=== PATIENT | female | born 1970 | race Caucasian/White ===

== ENCOUNTER → 2020-07-08 09:09 | Outpatient (CLI) | payer SELFPAY ==
--- NOTE | 2020-07-08 09:15 | US_ITS ---
STUDY: ULTRASOUND OF THE FEMALE PELVIS - COMPLETE REASON FOR EXAM: Female, 49 years old. Pelvic pain LMP: 06/26/2020. TECHNIQUE: Transvaginal TECHNICAL QUALITY: Adequate. COMPARISON: None. FINDINGS: The uterus is anteverted and is tilted to the right side of the pelvis. The uterus measures 10.2 cm x 6 cm x 5.3 cm. Normal uterine cervix. The endometrium measures 8 mm in thickness, and is hyperechoic. There is no demonstrated endometrial mass. There is a 1.3 cm x 1.5 cm x 1.4 cm fibroid in the lower uterine segment. I.U.D. - The patient does not have an I.U.D. The right ovary is visualized. The right ovary measures 2.4 cm x 2.7 cm x 2.6 cm. A dominant follicle is seen within the. There is no visualized right adnexal mass or complex lesion. There is normal arterial and normal venous vascularity. The left ovary is visualized. The left ovary measures 3.3 cm x 1.7 cm x 1.5 cm. There is no left ovarian cyst or ovarian mass. There is no visualized left adnexal mass or complex lesion. There is normal arterial and normal venous vascularity. There is no fluid in the cul-de-sac. US/Transvaginal Non- IMPRESSION: 1.3 cm x 1.5 cm x 1.4 cm fibroid in the lower uterine segment. No dominant follicle is seen in the right ovary. This measures 1.6 cm. Electronically Signed: Krystian Fowler MD at 10:03 EST , Service support ,
== END ==
PROVIDERS: PCP Obstetrics & Gynecology; Referring Provider Specialist; Visit Provider Specialist
DX: R10.2 Pelvic and perineal pain (principal)
CPT/HCPCS: 76830

== ENCOUNTER → 2020-07-29 | Outpatient (CLI) | payer OTHER, SELFPAY ==
--- NOTE | 2020-07-29 | EMB_PTH ---
PATIENT: LILIANA SEBASTIAN LOC: [facility] U#:[id number] AGE/SX: 49/F ROOM: RE07/29/[address]: Dr. Zeus Beard MD : 1970 BED: DIS: 07/29/2020 SPEC #: [id number] RECD: 07/29/20 10:55 STATUS: ROSY REQ #: [id number] STEVE: 07/29/20 00:[address]: Zeus Beard DEPT: SURGICAL PATHOLOGY RECD BY: Dina Garzon ENTERED: 07/29/20 11:13 SP TYPE: ENDOM BX/C OT DR: Dr. Leisa Harmon MD Tissues: Endometrium, NOS Procedures: Surgery Specimen Level IV HEADER OPERATION: Endometrial biopsy PRE-OP DIAGNOSIS: N93.9 TISSUE SUBMITTED: Endometrial biopsy MICROSCOPIC DIAGNOSIS Endometrial biopsy: Secretory endometrium. SJ:srtuhi 07/30/2020 MICROSCOPIC DESCRIPTION Slides are reviewed. GROSS DESCRIPTION Received in fixative is one container labeled with the patient's name and designated endometrial biopsy. The specimen consists of multiple irregular fragments of pink-ambriz soft tissue that in aggregate measure 1.5 x 1 x 0.1 cm. The specimen is totally submitted in one cassette. / AM:sruthi 07/29/20 TC:4 CPT: 64329
== END | disposition home or self-care (01) ==
PROVIDERS: PCP Obstetrics & Gynecology; Visit Provider Obstetrics & Gynecology
DX: N93.9 Abnormal uterine and vaginal bleeding, unspecified (principal)
CPT/HCPCS: 88305

== ENCOUNTER 2020-08-09 10:38 | Day surgery (SDC) | payer SELFPAY ==
[2020-08-04 10:58] LABS: Hematocrit 40.5 % (37-47); Hemoglobin 13.1 g/dL (12.0-15.0); Mean Corp Hgb Conc 32.3 g/dL (32-36); Mean Corpuscular Hgb 29.7 pg (27.0-32.0); Mean Corpuscular Volume 91.8 fL (81-99); Platelet Count 175 K/mm3 (150-450); RBC Distribution Width CV 13.2 % (11.6-14.6); RBC Distribution Width SD 44.8 fl (35.1-43.9); Red Blood Count 4.41 M/mm3 (4.2-5.4); White Blood Count 3.8 K/mm3 (4.4-11.0)
[2020-08-04 11:35] LABS: Creatinine, Serum 0.65 mg/dL (0.55-1.02); EST Glomerular Filtration Rate 103 mL/min (>60); Est Glom Filt Rate - Afr Amer 125 mL/min (>60)
--- NOTE | 2020-08-08 18:50 | PCM.HP.BLA ---
History and Physical Date of Admission: 08/09/20 Surgical History and Physical Oliva Mcrae, a 49 year old female 4 0 3 0 4, presents for RAVH/BSO/ Possible Posterior Repair on August 09, 2020 at 1:00. -- Heavy Menses; Symptomatic Rectocele; Uterine Fibroids -- History since of menses every 2-3 weeks with LMP of 07-18-20 lasting 4 days and heavy with a lot of cramps. Reports she is tired of this and wants a Hysterectomy. Adds that when her cycle comes she is almost in bed the whole day, and doubled over in pain with heavy bleeding. Extremely heavy menses which began . Oliva claims it started every 2-3 weeks and has been present Feb 2020. It occurs intermittantly. It is located in the vagina.; It is located in the lower abdomen. Oliva characterizes the quality cramping.; Oliva characterizes the quality heavy. Severity is moderate and not improving. Additional comments are: U/S shows lower uterine segment fibroid; symptomatic rectocele needing fingers to evacuate stool. MEDICATIONS HISTORY: ALLERGIES: NKA Infections - Chicken pox Illnesses - none Accidents - no injuries of consequence Hospitalizations - None Review of Systems: GENERAL - Denies fever, or chills SKIN - Denies skin changes EYES - Denies visual changes EARS - Denies difficulty hearing NOSE - Denies nasal congestion or bleeding MOUTH - Denies sore throat or difficulty swallowing NECK - Denies pain or swelling RESPIRATORY - Denies shortness of breath or wheezing CARDIOVASCULAR - Denies palpitations or chest pain GASTROINTESTINAL - Denies nausea, vomiting, diarrhea, constipation GENITOURINARY - Denies dysuria, frequency of urination, incontinence of urine MUSCULOSKELETAL - Denies joint or muscle pain NEUROLOGICAL - Denies localized numbness or weakness PSYCHIATRIC - Denies depression or anxiety ENDOCRINE - Denies heat or cold intolerance, weight loss or gain HEMATO-IMMUNOLOGIC - Denies excesive bleeding with cuts SOCIAL HISTORY: Alcohol Use - denies drinking Smoking - denies smoking Diet - moderate, balanced diet Lifestyle - moderate stress lifestyle and Exercise - walking Seat Belt 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 MENSTRUAL HISTORY: LMP Known?- YesAmount/Duration - 4 days, Regularity - Irregular, Frequency - every 2-3 weeks days, LMP - 07/18/20, Age Onset Menarche - 14 PAST PREGNANCIES: Total Pregnancies - 7; Full Term Pregnancies - 4; Premature - 0; Abortions, Induced - 0; Abortions, Spontaneous - 3; Ectopics - 0; Multiple Births - 0; Living Children - 4 SURGICAL HISTORY: 1. NASAL SURG 1990 2. 06/2006 Tubal ; Dr. Hewitt PHYSICAL EXAM BP- 110/78 Sitting, Right arm, regular cuff Weight- 138.53994 lbs Height- 65.5 inch BMI:22.66 CONSTITUTIONAL - NAD, well nourished, and well developed SKIN - No rash, lesions, or ulcers HEENT - Normocephalic, PERRLA, EOMI NECK - No nodes, no nuchal rigidity and thyroid normal size and texture LYMPH NODES - Palpation of lymph nodes in neck and groins within normal limits LUNGS - CTA x2 without wheezes, crackles or rales CARDIAC - Regular rate and rhythm without rubs, murmurs, or gallops ABDOMEN - Without hepatosplenomegaly, distention, masses, rebound, or guarding; normal bowel sounds; no hernias EXTREMITIES - No edema or calf tenderness NEUROLOGICAL - Cranial nerves II-XII grossly intact PSYCHIATRIC - A and O to time, place, person, mood and affect External Genitial Vagina - non-tender without lesions Urethra/Urethral Meatus - non-tender Bladder - non-tender Vagina - vaginal boyce are pink and moist without loss of rugae and no evidence of atropy and rectocele 2 cm outside introitus with bearing down; minimal cystocele Cervix - without cervical motion tenderness and has normal size and features without evident lesions and cervix high in vagina with minimal decensus Uterus - multiparous size 6 cm & wt 75-125 g Adnexa - clear without massess or tenderness ASSESSMENT/PLAN: 1. Premenopausal Menorrhagia, Rectocele and Uterine Leiomyoma Unspec EMBx OK. Adamantly declines treatment other than hysterectomy. Plan RAVH/BSO/Possible Posterior Repair. Discussed RBAs and all questions answered.
[2020-08-09] VITALS (11 sets, daily range): BP systolic 112–141; BP diastolic 67–83; PULSE 67–78; RESP 16–17; TEMP 36.2–37.2; O2SAT 95–100; BMI 22.1
--- NOTE | 2020-08-09 | HYST_PTH ---
PATIENT: LILIANA SEBASTIAN LOC: [facility] [place] U#:[id number] AGE/SX: 49/F ROOM: RE08/09/[address]: Dr. Zeus Beard MD : 1970 BED: DIS: 08/10/2020 SPEC #: [id number] RECD: 08/10/20 08:04 STATUS: ROSY REStef #: [id number] STEVE: 08/09/20 00:[address]: Zeus Beard DEPT: SURGICAL PATHOLOGY RECD BY: Trino Porter ENTERED: 08/10/20 08:04 SP TYPE: HYSTERECT OTHR DR: Dr. Tanner Sexton, DO Tissues: Uterus, NOS Procedures: Surgery Specimen Level V HEADER OPERATION: Lap robotic hysterectomy, BSO, posterior repair PRE-OP DIAGNOSIS: Premenopausal menorrhagia, rectocele and uterine leiomyoma TISSUE SUBMITTED: Uterus, cervix, bilateral fallopian tubes and ovaries, vaginal mucosa MICROSCOPIC DIAGNOSIS Uterus, cervix, bilateral fallopian tubes and vaginal mucosa, hysterectomy and bilateral salpingo-oophorectomy and posterior repair: Cervix - mild chronic cystic cervicitis. Endometrium - secretory endometrium. Myometrium - intramural leiomyomas (largest measuring 2 cm in greatest dimension). Focal adenomyosis. Bilateral fallopian tubes - no pathologic diagnosis. Bilateral ovaries - physiologic follicular and corpus luteal cysts. Vaginal mucosa - pieces of squamous mucosa, no pathologic diagnosis. SJ:sruthi 08/11/2020 MICROSCOPIC DESCRIPTION Slides are reviewed. GROSS DESCRIPTION Received in fixative is one container labeled with the patient's name and designated uterus, cervix, bilateral fallopian tubes and ovaries and vaginal mucosa. The specimen consists of a hysterectomy specimen consisting of a uterus with cervix, attached bilateral fallopian tubes and ovary and detached pieces of mucosal tissue. The uterus with cervix weighs 77 gm and measures 7.5 x 5 x 4.5 cm. The serosal surface is ambriz, glistening. The ectocervical mucosa is unremarkable. The ectocervix is slit-like in contour. The endocervical canal measures 2.5 cm in length and the endocervical mucosa is unremarkable. The triangular endometrial cavity measures 4 cm in length and up to 2 cm in width. The endometrium is ambriz, glistening without any mass lesion and measures up to 0.1 cm in thickness. Focal areas show denuded endometrium. Sections of the uterine wall reveal multiple intramural nodular masses. The largest mass measures 2 cm in greatest dimension. Sections of these masses reveal ambriz whorled cut surfaces without areas of hemorrhage, necrosis or cystic degeneration. The uninvolved uterine wall measures up to 2 cm in thickness. The right fallopian tube measures 7 cm in length and 0.5 cm in diameter. The fimbrial end is identified. No tubo-ovarian adhesions are noted. The proximal portion of the fallopian tube shows two Filshie clips which appear intact. The soft to cystic right ovary measures 2.5 x 2.5 x 1.5 cm. Sections reveal multiple corpus lutea. The largest corpus luteum measures 1 cm in greatest dimension. The left fallopian tubes is similar appearance to right and measures 7 cm in length and up to 0.5 cm in diameter. The proximal portion of the fallopian tube also shows two Filshie clips which appear intact. The left ovary measures 3 x 1.5 x 1 cm. Sections reveal multiple cysts filled with serosanguinous fluid. The largest cyst measures 0.5 cm in greatest dimension. A corpus luteum is also noted measuring 0.5 cm in greatest dimension. Also present in the container are three variable sized pieces of ambriz mucosal tissue measuring in aggregate 5.5 x 3.5 x 0.4 cm. No mucosal lesion is identified. Multiple instrumentation escobar are noted. Licensed Psychologist Director sections are submitted in 12 cassettes as follows: 1 - anterior cervix, 2 - posterior cervix, 3 & 4 - anterior uterine wall, 5 & 6 - posterior uterine wall. Sections of the uterine wall also contain the smaller nodular masses. 7 - largest mass and smaller nodular mass, 8 - right fallopian tube, 9 - right ovary, 10 - left fallopian tube, 11 - left ovary, 12 - mucosal tissue. / IVELISSE:sruthi 08/10/20 TC:3 CPT: 11613
[2020-08-09] MEDS: Lactated Ringers 1,000 ML 100 ML IV ×4 (11:41→23:22)
[2020-08-09] MEDS: Cefotetan 2 GM in 0.9% NS 100 ML IV (13:00)
[2020-08-09] MEDS: Ropivacaine 0.5% 30 ML Vial (13:24)
[2020-08-09] MEDS: Ketorolac 30 MG/ML Syringe IV ×2 (16:32→23:24)
--- NOTE | 2020-08-09 16:42 | OP.PCM_ITS ---
Report of Operation Date of Procedure: 08/09/20 Pre-Operative Diagnosis: Menorrhagia; Rectocele, Uterine Fibroids Post-Operative Diagnosis: Menorrhagia, Rectocele, Uterine Fibroids Surgery/Procedure Performed:: Robotic Assisted Vaginal Hysterectomy, Bilateral Salpingo-Oophorectomy, and Posterior Repair Description of Surgical Findings:: 10 cm uterus with normal-appearing fallopian tubes and ovaries. Adhesions of omentum to anterior abdominal wall left in place. Rectocele which protruded 2 cm outside the vaginal introitus. manuscript editor: Kevon Odom manuscript editor: Crow Wood Type of Anesthesia:: General - Endotracheal Anesthesiologist: Giovany Benz Specimen's removed: Uterus, bilateral fallopian tubes and ovaries, posterior vaginal mucosa Drains: Lowry to straight drain Estimated Blood Loss (mL): Minimal Fluids Replaced: Crystalloid Description of Procedure: Surgeon: Zeus Beard MD, FACOG Indication: This is a 49 year old patient who has been having problems with extremely heavy menses and rectal pressure. Conservative measures have not been helpful. She declines other treatment options. The patient has been counseled regarding the risks, benefits and alternatives of this procedure including the possibility of bleeding, infection, and injury to surrounding structures such as bowel bladder and all questions were answered. She understands that if BSO is needed that she will need to be on HRT for an indefinite period of time. Procedure: Pt taken to the operating room where, after induction of general anesthesia, the patient was prepped and draped in the usual sterile fashion and placed on a non-slip Huggy-u-vac device. Trendelenburg test was satisfactory. Bladder was drained of urine with a Lowry catheter which was left in place. Anterior cervix grasped and cervix was dilated to about 3-4 mm. Uterus sounded to 9 cms. 0-Vicryl suture was placed at the 3:00 and 9:00 position of the cervix. A small Advincula Picking Machine Operator Helper Uterine Manipulator was then placed in the uterus and attention was turned to the laparoscopic portion of the procedure. Ropivocaine 0.5% was injected approximately 2-3 cm superior to the umbilicus and an 8 mm robotic camera port was introduced directly with intraperitoneal placement confirmed with CO2 insufflation. 8 mm robotic side ports were introduced under direct visualization approximately 11 cm lateral and 2 cm infer ior to the umbilical port. A 5 mm left upper quadrant port was introduced and airseal insufflation with CO2 was started. The above findings were noted. Robot was docked without difficulty and attention turned to the robotic portion of the procedure. Approximately 30 cc of Ropivicaine was used. Bilateral infundibulopelvic ligaments were ligated with 35 rajput bipolar coagulation to the level of the round ligament. The posterior aspect of the cervix was identified and then opened for about 1 cm using 25 watt monopolar cautery. Bladder flap was opened and divided to the level of the round li gaments using monopolar cautery. Progressive bites were then ligated on each side of the cervix with 35 rajput bipolar cautery to the uterine arteries. The anterior vaginal mucosa was entered and cervix circumscribed with monopolar cautery. Uterus and attached tubes and ovaries were removed through the vagina. Vaginal cuff was closed first with 0-Vicryl Azucena stitches placed at each angle followed by closure of the mid-cuff with 0-Monocryl V-lock suture in two layers. Pelvis was copiously irrigated with saline and the right ureter was noted to peristalse. Leandra was placed across the vaginal cuff to help with postoperative hemostasis due to some oozing. Robot was undocked and trocars were removed with as much gas as possible. Incisions were closed with 4-0 Monocryl subcuticular sutures and incisions covered with steri-strips. Remnants of the hymenal ring were grasped with Allises and a V-shaped incision was made in the perineum. Rectovaginal mucosa was then undermined divided and then imbricated toward the midline with interrupted 0 Vicryl suture. Vaginal mucosa was trimmed and then closed with running locked 2-0 chromic suture. Perineum was closed in the usual fashion with running and subcuticular, and [id number] 2-0 chromic suture. Hemostasis was noted. The vagina was packed with 1 inch iodoform tape. The patient tolerated the procedure well and was taken to the recovery room in satisfactory condition. Sponge, instruments and needle counts were all correct. There were no apparent complications of the surgery. Cefotetan hand 2 gms IV was given prior to the procedure. Lowry catheter was left in place with clear yellow urine noted. Estimated Blood Loss: Minimal Specimen to Pathology: Uterus, bilateral fallopian tubes and ovaries, vaginal mucosa Grafts/Implants Used: None - Complications None - Admit VTE Documentation VTE Present on Admission: Yes VTE Mechan Device Prophylaxis: SCD's VTE Pharm Prophylaxis ordered?: Yes
--- NOTE | 2020-08-09 16:55 | DCINST_ITS ---
Discharge Diet: No Restrictions Discharge Activity: Return to Normal Activity, May Not Drive - while taking narcotic pain medications., May Shower, May Take a Tub Bath May resume sexual activity in: 6-8 weeks Call your doctor if your incision/area has: Continuous Slow Oozing, Sudden Inc reased Bleeding, Increased Pain/ Swelling, Increased Redness, Foul Smelling Discharge Call your doctor if you observe: Fever of 101 or Higher, Inability to urinate, Inability to have a bowel movement, Using more than one pad per hour Additional Instructions: Nothing in the vagina for 6 weeks please; no lifting more than 20-25 lbs for 6 weeks. Use Ibuprophen 800 mg orally every 8 hours as needed for pain. Can also add Tylenol 1000 mg every 8 hours if needed for pain. If Ibuprophen and Tylenol are not effective then use the Oxycodone but keep in mind it can cause serious constipation issues. Drink lots of water. Call if bleeding more than a pad per hour. Use the colace as constipation is a big issue after this type of surgery. Steps and walking are OK. Activity is encouraged but do not over do it !! Allergies/Adverse Reactions: Allergies No Known Allergies Allergy (Verified 08/09/20 11:10) Medications to take at Discharge NK 08/02/20 Primary Care Physician: Tanner Sexton DO [Primary Care Provider] - Test Results: Test results from this visit will be discussed in further detail at your follow- up appointment, if applicable. Please Follow Up With: Zeus Beard MD When: 2-3 weeks
[2020-08-09] MEDS: Acetaminophen 500 MG Tablet 1000 MG PO ×2 (18:02→23:24)
[2020-08-09] MEDS: oxyCODONE 5 MG Tablet PO (20:34)
[2020-08-09] MEDS: Docusate Sodium 100 MG Capsule PO (21:37)
[2020-08-10 01:30] VITALS: BP 104/61; PULSE 74; RESP 16; TEMP 36.9; O2SAT 97
[2020-08-10 05:30] VITALS: BP 111/70; PULSE 63; RESP 18; TEMP 36.8; O2SAT 96
[2020-08-10] MEDS: Ketorolac 30 MG/ML Syringe IV ×2 (05:45→11:32)
[2020-08-10] MEDS: Acetaminophen 500 MG Tablet 1000 MG PO ×2 (05:45→11:31)
[2020-08-10] MEDS: 0.9% Saline Lock 10 ML Syringe IV (05:46)
[2020-08-10 06:33] LABS: Hemoglobin 11.4 g/dL (12.0-15.0); Mean Corp Hgb Conc 33.5 g/dL (32-36); Mean Corpuscular Hgb 30.6 pg (27.0-32.0); Mean Corpuscular Volume 91.2 fL (81-99); Mean Platelet Vol. 10.8 fl (6.2-12.0); Platelet Count 149 K/mm3 (150-450); RBC Distribution Width CV 13.4 % (11.6-14.6); RBC Distribution Width SD 44.5 fl (35.1-43.9); Red Blood Count 3.73 M/mm3 (4.2-5.4); White Blood Count 5.5 K/mm3 (4.4-11.0)
[2020-08-10 07:42] VITALS: O2SAT 96
--- NOTE | 2020-08-10 08:42 | PCM.PN.OB ---
Subjective: Patient without complaints. Tolerating diet well. Minimal vaginal bleeding. Pain well controlled. Objective: Good urine output. Hemoglobin ok. Wound clean, dry, intact. Vaginal pack is out with minimal bleeding noted. - Physical Exam Vitals/I&O's: Vital Signs Temp Pulse Resp BP Pulse Ox 98.2 F 63 18 111/70 96 08/10/20 05:30 08/10/20 05:30 08/10/20 05:30 08/10/20 05:30 08/10/20 07:42 Oxygen Flow Rate (L/min) 4 Oxygen Delivery Method Room Air Weight: 136 lb 14.513 oz Body Mass Index (BMI) 22.1 Intake and Output for Last 24 Hours 08/08/20 08/09/20 08/10/20 23:59 23:59 23:59 Intake Total 3620.67 / 3620.67 825.00 / 825.00 Output Total 1200 / 1200 900 / 900 Balance 2420.67 / 2420.67 -75.00 / -75.00 Laboratory Results 08/10/20 05:43: WBC 5.5, RBC 3.73 L, Hgb 11.4 L, Hct 34.0 L, MCV 91.2, MCH 30.6, MCHC 33.5, RDW Std Deviation 44.5 H, RDW Coeff of Abundio 13.4, Plt Count 149 L, MPV 10.8 Current Medications Acetaminophen (Acetaminophen 500 Mg Tablet) 1,000 mg PO Q6 [facility] Last Admin: 08/10/20 05:45 Dose: 1,000 mg Documented by: Docusate Sodium (Docusate Sodium 100 Mg Capsule) 100 mg PO BID [facility] Last Admin: 08/09/20 21:37 Dose: 100 mg Documented by: Estradiol (Estradiol 1 Mg Tablet) 1 mg PO DAILY [facility] Lactated Ringer's () 1,000 mls @ 100 mls/hr IV .Q10H [facility] Last Infusion: 08/10/20 05:25 Dose: Infused Documented by: Sodium Chloride () 250 mls @ 15 mls/hr IV .[id number] PRN PRN Reason: Saline Flush Sodium Chloride () 250 mls @ 15 mls/hr IV .[id number] PRN PRN Reason: Additional IVPB Infusion Ketorolac Tromethamine (Ketorolac 30 Mg/Ml Syringe) 30 mg IV Q6 [facility] Stop: 08/11/20 00:01 Last Admin: 08/10/20 05:45 Dose: 30 mg Documented by: Magnesium Chloride (Magnesium Chloride 64 Mg Delay Rel.Tablet) 128 mg PO DAILY PRN PRN PRN Reason: Constipation Nutritional Formula (Lactose Free) (Ensure Enlive 120 Ml Liquid) 120 ml PO TIDCM [facility] Last Admin: 08/09/20 17:48 Dose: Not Given Documented by: Ondansetron HCl (Ondansetron Odt 4 Mg Tablet) 4 mg PO Q6H PRN PRN PRN Reason: NAUSEA Oxycodone HCl (Oxycodone 5 Mg Tablet) 5 mg PO Q4H PRN PRN PRN Reason: Pain Score 6-10 Last Admin: 08/09/20 20:34 Dose: 5 mg Documented by: Sodium Chloride (0.9% Saline Lock 10 Ml Syringe) 10 - 40 ml IV UD PRN PRN Reason: SALINE FLUSH Last Admin: 08/10/20 05:46 Dose: 10 ml Documented by: Medical Necessity - Tobacco Use Smoking Status: Never smoker Tobacco Use: Non-smoker Assessment/Plan Doing well postoperative day #1 status post robotic assisted vaginal hysterectomy, bilateral salpingo-oophorectomy and posterior repair. Will discharge to home with routine instructions.
[2020-08-10] MEDS: Estradiol 1 MG Tablet PO (08:53)
[2020-08-10] MEDS: Docusate Sodium 100 MG Capsule PO (08:53)
[2020-08-10 09:30] VITALS: BP 112/77; PULSE 62; RESP 16; TEMP 36.8; O2SAT 100
[2020-08-10 12:02] VITALS: BP 122/81; PULSE 68; RESP 16; TEMP 37; O2SAT 99
== END 2020-08-10 12:30 | disposition home or self-care (01) ==
LOC: SDC 10:39 → AC 08-10 10:00 → MS3 08-10 10:01
PROVIDERS: PCP Family Medicine; Referring Provider Obstetrics & Gynecology; Visit Provider Obstetrics & Gynecology
PROC: 0UT94ZZ Resection of Uterus, Percutaneous Endoscopic Approach (ICD-10-PCS; CPT 57250; principal; 2020-08-09 12:25)
DX: D25.1 Intramural leiomyoma of uterus (principal); N80.0 Endometriosis of uterus; N83.12 Corpus luteum cyst of left ovary; N83.11 Corpus luteum cyst of right ovary; N83.02 Follicular cyst of left ovary; N83.01 Follicular cyst of right ovary; N81.6 Rectocele; N92.4 Excessive bleeding in the premenopausal period; Z20.828 Contact with and (suspected) exposure to other viral communicable diseases
CPT/HCPCS: 00942; 57250; 58571; S2900; 36415; 82565; 85027; 85610; 85730; 86850; 86900; 86901; 87426; 88307; 99251; C9803; J7120; A4216; G0463; J2405